=== PATIENT | male | born 1950 | race Asian ===

== ENCOUNTER 2016-07-30 08:27 | Emergency (ER) | payer MEDICAID ==
[2016-07-30] MEDS ORDERED: NORMAL SALINE 1000 ML 1,000 ML IV PRN (08:41)
--- NOTE | 2016-07-30 09:28 | ER Document Report ---
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 Patient has not been hydrating well. Admits to multiple similar episodes in the past TRAVEL OUTSIDE OF THE [place] IN LAST 30 DAYS: No - HPI Onset: Last week Onset/Duration: Persistent Quality of pain: Achy Severity: Mild Pain Level: 1 Associated symptoms: Nausea, Vomiting Exacerbated by: Denies Relieved by: Denies Similar symptoms previously: Yes Recently seen / treated by doctor: Yes - Related Data Allergies/Adverse Reactions: No Known Allergies Allergy (Verified 07/30/16 08:33) Past Medical History - Social History Smoking Status: Current Every Day Smoker Cigarette use (# per day): Yes Chew tobacco use (# tins/day): No Smoking Education Provided: No Frequency of alcohol use: Occasional Drug Abuse: None Family History: Reviewed & Not Pertinent Patient has suicidal ideation: No Patient has homicidal ideation: No - Past Medical History Cardiac Medical History: Denies: Hx Coronary Artery Disease, Hx Heart Attack, Hx Hypertension Pulmonary Medical History: Denies: Hx Asthma, Hx Bronchitis, Hx COPD, Hx Pneumonia Neurological Medical History: Denies: Hx Cerebrovascular Accident, Hx Seizures Endocrine Medical History: Reports: Hx Diabetes Mellitus Type 2 Renal/ Medical History: Denies: Hx Peritoneal Dialysis Musculoskeltal Medical History: Reports Hx Arthritis Psychiatric Medical History: Reports: Hx Dementia Past Surgical History: Reports: Hx Cholecystectomy, Hx Coronary Stent - Immunizations Hx Diphtheria, Pertussis, Tetanus Vaccination: No - UNSURE Review of Systems - Review of Systems Notes: REVIEW OF SYSTEMS: CONSTITUTIONAL : Denies fever, chills, or sweats. Denies recent illness. EENT: Denies eye, ear, throat, or mouth pain or symptoms. Denies nasal or sinus congestion or discharge. Denies throat, tongue, or mouth swelling or difficulty swallowing. CARDIOVASCULAR: Denies chest pain. Denies palpitations or racing or irregular heart beat. Denies ankle edema. RESPIRATORY: Denies cough, cold, or chest congestion. Denies shortness of breath, difficulty breathing, or wheezing. GASTROINTESTINAL: Denies abdominal pain or distention. Denies nausea, vomiting , or diarrhea. Denies blood in vomitus, stools, or per rectum. Denies black, tarry stools. Denies constipation. but had abd pain prior to arrival GENITOURINARY: Denies difficulty urinating, painful urination, burning, frequency, blood in urine, or discharge. MUSCULOSKELETAL: Denies back or neck pain or stiffness. Denies joint pain or swelling. SKIN: Denies rash, lesions or sores. HEMATOLOGIC : Denies easy bruising or bleeding. LYMPHATIC: Denies swollen, enlarged glands. NEUROLOGICAL: Denies confusion or altered mental status. Denies passing out or loss of consciousness. Denies dizziness or lightheadedness. Denies headache. Denies weakness or paralysis or loss of use of either side. Denies problems with gait or speech. Denies sensory loss, numbness, or tingling. Denies seizures. PSYCHIATRIC: Denies anxiety or stress. Denies depression, suicidal ideation, or homicidal ideation. ALL OTHER SYSTEMS REVIEWED AND NEGATIVE. Dictation was performed using [employer] voice recognition software PHYSICAL EXAMINATION: GENERAL: Well-appearing, well-nourished and in no acute distress. HEAD: Atraumatic, normocephalic. EYES: Pupils equal round and reactive to light, extraocular movements intact, sclera anicteric, conjunctiva are normal. ENT: Nares patent, oropharynx clear without exudates. Moist mucous membranes. NECK: Normal range of motion, supple without lymphadenopathy LUNGS: Breath sounds clear to auscultation bilaterally and equal. No wheezes rales or rhonchi. HEART: Regular rate and rhythm without murmurs ABDOMEN: Soft, nontender, nondistended abdomen. No guarding, no rebound. No masses appreciated. Musculoskeletal: Normal range of motion, no pitting or edema. No cyanosis. NEUROLOGICAL: Cranial nerves grossly intact. Normal speech, normal gait. Normal sensory, motor exams PSYCH: Normal mood, normal affect. SKIN: Warm, Dry, normal turgor, no rashes or lesions noted. Physical Exam - Vital signs Vitals: Temp Pulse Resp BP Pulse Ox 97.3 F 82 18 132/88 H 100 07/30/16 08:35 07/30/16 08:35 07/30/16 08:35 07/30/16 08:35 07/30/16 08:35 Course - Re-evaluation Re-evalutation: 07/30/16 09:28 Patient refuses an prop and scenery maker and wishes for family member to interpret for him labs pending 07/30/16 10:[address] Boyer regarding patient he has no concerns regarding imaging, labs or further workup. he bleeives pain control and patient is stable for discharge 07/30/16 10:20 After performing a Medical Screening Examination, I estimate there is LOW risk for ACUTE APPENDICITIS, BOWEL OBSTRUCTION, ACUTE CHOLECYSTITIS, PERFORATED DIVERTICULITIS, INCARCERATED HERNIA, PANCREATITIS, or PERFORATED ULCER, thus I consider the discharge disposition reasonable. Also, there is no evidence or peritonitis, sepsis, or toxicity. The patient and I have discussed the diagnosis and risks, and we agree with discharging home with close follow-up with the understanding that symptoms and presentations can change. We also discussed returning to the Emergency Department immediately if new or worsening symptoms occur. We have discussed the symptoms which are most concerning (e.g., bloody stool, fever, changing or worsening pain, intractable vomiting - standard verbal up date) that necessitate immediate return. - Vital Signs Vital signs: Temp Pulse Resp BP Pulse Ox 97.3 F 82 18 132/88 H 100 07/30/16 08:35 07/30/16 08:35 07/30/16 08:35 07/30/16 08:35 07/30/16 08:35 - Laboratory Result Diagrams: 07/30/16 09:39 07/30/16 09:39 Laboratory results interpreted by me: 07/30/16 07/30/16 09:39 09:39 RDW 14.1 H Plt Count 117 L Seg Neutrophils % 80.9 H Lymphocytes % 7.1 L Total Bilirubin 2.1 H AST 74 H Alkaline Phosphatase 165 H Lipase 10.6 L - Consults Dr boyer Time consulted: 10:17 Reason for consultation: 07/30/16 10:17 consult Discharge - Discharge Clinical Impression: History of ERCP, Decreased appetite Condition: Stable Disposition: HOME, SELF-CARE Additional Instructions: Please follow-up with your surgeon in 1-2 days for reevaluation or return immediately if there are any other concerns
[2016-07-30 09:53] LABS: ABSOLUTE EOSINOPHILS # (AUTO) 0.1 10^3/uL (0.0-0.6); ABSOLUTE LYMPHOCYTES (AUTO) 0.7 10^3/uL (0.5-4.7); ABSOLUTE MONOCYTES (AUTO) 1.1 10^3/uL (0.1-1.4); ABSOLUTE NEUT (AUTO) 7.6 10^3/uL (1.7-8.2); BASOPHILS % (AUTO) 0.1 % (0-2); EOSINOPHILS % (AUTO) 0.6 % (0-6); HEMATOCRIT 47.1 % (37.9-51.0); HGB HCT DIFFERENCE 0.9; LYMPHOCYTES % (AUTO) 7.1 % (13-45); MEAN CORPUSCULAR HEMOGLOBIN 31.4 pg (27.0-33.4); MEAN CORPUSCULAR HGB CONC 33.9 g/dL (32.0-36.0); MEAN CORPUSCULAR VOLUME 93 fl (80-97); MONOCYTES % (AUTO) 11.3 % (3-13); RED BLOOD COUNT 5.08 10^6/uL (4.35-5.55); RED CELL DISTRIBUTION WIDTH 14.1 % (11.5-14.0); SEGMENTED NEUTROPHILS % (AUTO) 80.9 % (42-78); WHITE BLOOD COUNT 9.3 10^3/uL (4.0-10.5)
[2016-07-30 10:10] LABS: ALANINE AMINOTRANSFERASE 61 U/L (21-72); ALBUMIN 4.1 g/dL (3.5-5.0); ALKALINE PHOSPHATASE 165 U/L (38-126); ANION GAP 17 (5-19); ASPARTATE AMINO TRANSFERASE 74 U/L (17-59); BILIRUBIN,TOTAL 2.1 mg/dL (0.2-1.3); BLOOD UREA NITROGEN 16 mg/dL (7-20); CALCIUM 9.1 mg/dL (8.4-10.2); CARBON DIOXIDE 22 mmol/L (22-30); CHLORIDE 100 mmol/L (98-107); CREATININE RESULT 0.87 mg/dL (0.52-1.25); GLUCOSE 109 mg/dL (75-110); LIPASE 10.6 U/L (23-300); POTASSIUM 3.9 mmol/L (3.6-5.0); SODIUM 138.8 mmol/L (137-145); TOTAL PROTEIN 7.7 g/dL (6.3-8.2)
[2016-07-30 11:59] VITALS: BP 156/84
== END 2016-07-30 11:26 | disposition home or self-care (01) ==
LOC: ER 08:27
DX: R63.0 Anorexia (principal); Z98.890 Other specified postprocedural states; E11.9 Type 2 diabetes mellitus without complications; F17.210 Nicotine dependence, cigarettes, uncomplicated; Z87.19 Personal history of other diseases of the digestive system; Z90.49 Acquired absence of other specified parts of digestive tract; Z98.61 Coronary angioplasty status
CPT/HCPCS: 99284; 96360; 96361; 36415; 83690; 85025; 80053; J7030

== ENCOUNTER 2018-03-14 19:30 | Inpatient (IN) | payer MEDICARE, MEDICAID ==
--- NOTE | 2018-03-14 20:41 | ER Document Report ---
ED GI/ - General Chief Complaint: Abdominal Pain Stated Complaint: ABDOMINAL PAIN Time Seen by Provider: 03/14/18 20:41 Mode of Arrival: Ambulatory Information source: Patient, Relative Notes: Patient presented to the ED with epigastric abdominal pain which started a few days ago. Patient also have unexplained weight loss and anorexia. TRAVEL OUTSIDE OF THE [place] IN LAST 30 DAYS: No - HPI Patient complains to provider of: Abdominal pain Onset: This morning Timing/Duration: Sudden Quality of pain: Sharp Severity at maximum: Severe Severity in ED: Severe Pain Level: 4 Location: Epigastric Associated symptoms: Nausea, Vomiting Exacerbated by: Denies Relieved by: Denies Similar symptoms previously: No Recently seen / treated by doctor: No - Related Data Allergies/Adverse Reactions: No Known Allergies Allergy (Verified 07/30/16 08:33) Past Medical History - Social History Smoking Status: Unknown if Ever Smoked Family History: Reviewed & Not Pertinent - Past Medical History Cardiac Medical History: Denies: Hx Coronary Artery Disease, Hx Heart Attack, Hx Hypertension Pulmonary Medical History: Denies: Hx Asthma, Hx Bronchitis, Hx COPD, Hx Pneumonia Neurological Medical History: Denies: Hx Cerebrovascular Accident, Hx Seizures Endocrine Medical History: Reports: Hx Diabetes Mellitus Type 2 Renal/ Medical History: Denies: Hx Peritoneal Dialysis Musculoskeletal Medical History: Reports Hx Arthritis Psychiatric Medical History: Reports: Hx Dementia Past Surgical History: Reports: Hx Abdominal Surgery, Hx Cholecystectomy, Hx Coronary Stent - Immunizations Hx Diphtheria, Pertussis, Tetanus Vaccination: No - UNSURE Review of Systems - Review of Systems Constitutional: No symptoms reported EENT: No symptoms reported Cardiovascular: No symptoms reported Respiratory: No symptoms reported Gastrointestinal: Abdominal pain, Nausea, Vomiting Genitourinary: No symptoms reported Male Genitourinary: No symptoms reported Musculoskeletal: No symptoms reported Skin: No symptoms reported Hematologic/Lymphatic: No symptoms reported Neurological/Psychological: No symptoms reported -: Yes All other systems reviewed and negative Physical Exam - Vital signs Vitals: Temp Pulse Resp BP Pulse Ox 98.0 F 86 20 140/82 H 99 03/14/18 19:40 03/14/18 19:40 03/14/18 19:40 03/14/18 19:40 03/14/18 19:40 Interpretation: Normal - General General appearance: Alert, Other - Cachectic In distress: Moderate - HEENT Head: Normocephalic, Atraumatic Eyes: Normal Pupils: PERRL - Respiratory Respiratory status: No respiratory distress Chest status: Nontender Breath sounds: Normal Chest palpation: Normal - Cardiovascular Rhythm: Regular Heart sounds: Normal auscultation Murmur: No - Abdominal Inspection: Normal Distension: No distension Bowel sounds: Normal Tenderness: Tender - Epigastric tenderness to palpation. Organomegaly: No organomegaly - Back Back: Normal, Nontender - Extremities General upper extremity: Normal inspection, Nontender, Normal color, Normal ROM , Normal temperature General lower extremity: Normal inspection, Nontender, Normal color, Normal ROM , Normal temperature, Normal weight bearing. No: Karmen's sign - Neurological Neuro grossly intact: Yes Cognition: Normal Orientation: AAOx4 Tawny Coma Scale Eye Opening: Spontaneous Tawny Coma Scale Verbal: Oriented Tawny Coma Scale Motor: Obeys Commands Tawny Coma Scale Total: 15 Speech: Normal Motor strength normal: LUE, RUE, LLE, RLE Sensory: Normal - Psychological Associated symptoms: Normal affect, Normal mood - Skin Skin Temperature: Warm Skin Moisture: Dry Skin Color: Normal Course - Vital Signs Vital signs: Temp Pulse Resp BP Pulse Ox 98.0 F 84 17 127/66 H 100 03/14/18 19:40 03/14/18 21:20 03/14/18 21:20 03/14/18 23:01 03/14/18 23:01 - Laboratory Result Diagrams: 03/14/18 20:40 03/14/18 20:40 Laboratory results interpreted by me: 03/14/18 03/14/18 03/14/18 20:40 20:40 21:33 WBC 11.5 H Plt Count 120 L Seg Neuts % (Manual) 81 H Lymphocytes % (Manual) 8 L Abs Neuts (Manual) 9.3 H Potassium 3.2 L Glucose 111 H Total Bilirubin 3.7 H Direct Bilirubin 0.9 H Lipase 338.4 H Urine Ketones 20 H Urine Blood MODERATE H Urine Urobilinogen 2.0 H - Diagnostic Test Radiology reviewed: Image reviewed, Reports reviewed - Transfer of Care Care transferred to following provider: Patient will be admitted by Dr. Mesha Cunningham for further management. Notes: 03/15/18 02:39 Acute pancreatitis. Epigastric abdominal pain.. Weight loss. Discharge - Discharge Clinical Impression: Weight loss, unintentional Acute pancreatitis Qualifiers: Pancreatitis type: unspecified pancreatitis type Acute pancreatitis complication: unspecified Qualified Code(s): K85.90 - Acute pancreatitis without necrosis or infection, unspecified Abdominal pain Qualifiers: Abdominal location: epigastric Qualified Code(s): R10.13 - Epigastric pain Condition: Stable Disposition: ADMITTED INPATIENT Admitting Provider: Hospitalist Unit Admitted: Medical Floor
[2018-03-14 21:03] LABS: HEMATOCRIT 41.3 % (37.9-51.0); HEMOGLOBIN 14.2 g/dL (13.5-17.0); MEAN CORPUSCULAR HGB CONC 34.3 g/dL (32.0-36.0); MEAN CORPUSCULAR VOLUME 93 fl (80-97); PLATELET COUNT 120 10^3/uL (150-450); RED BLOOD COUNT 4.42 10^6/uL (4.35-5.55); RED CELL DISTRIBUTION WIDTH 13.5 % (11.5-14.0); WHITE BLOOD COUNT 11.5 10^3/uL (4.0-10.5)
[2018-03-14 21:21] LABS: ABSOLUTE LYMPHOCYTES# (MANUAL) 0.9 10^3/uL (0.5-4.7); ABSOLUTE MONOCYTES # (MANUAL) 1.3 10^3/uL (0.1-1.4); ABSOLUTE NEUTROPHILS# (MANUAL) 9.3 10^3/uL (1.7-8.2); BASOPHILS % (MANUAL) 0 % (0-2); EOSINOPHILS % (MANUAL) 0 % (0-6); LYMPHOCYTES % (MANUAL) 8 % (13-45); MONOCYTES % (MANUAL) 11 % (3-13); NUCLEATED RED BLOOD CELLS 1 /100 WBC (0); SEGMENTED NEUTROPHILS % (MAN) 81 % (42-78); TOTAL CELLS COUNTED 100
[2018-03-14 21:22] LABS: PLATELET COMMENT DECREASED; TOXIC GRANULATION SLIGHT
[2018-03-14 21:25] LABS: ALANINE AMINOTRANSFERASE 38 U/L (21-72); ALBUMIN 3.9 g/dL (3.5-5.0); ALKALINE PHOSPHATASE 70 U/L (38-126); ANION GAP 15 (5-19); ASPARTATE AMINO TRANSFERASE 51 U/L (17-59); BILIRUBIN,DIRECT 0.9 mg/dL (0.0-0.4); BILIRUBIN,TOTAL 3.7 mg/dL (0.2-1.3); BLOOD UREA NITROGEN 12 mg/dL (7-20); CALCIUM 8.7 mg/dL (8.4-10.2); CARBON DIOXIDE 23 mmol/L (22-30); CHLORIDE 99 mmol/L (98-107); GLUCOSE 111 mg/dL (75-110); LIPASE 338.4 U/L (23-300); POTASSIUM 3.2 mmol/L (3.6-5.0); SODIUM 137.1 mmol/L (137-145); TOTAL PROTEIN 7.5 g/dL (6.3-8.2)
[2018-03-14 21:45] LABS: APPEARANCE,URINE SLIGHTLY-CLOUDY; BILIRUBIN,URINE NEGATIVE (NEGATIVE); COLOR,URINE YELLOW; GLUCOSE, URINE NEGATIVE (NEGATIVE); KETONES,URINE 20 mg/dL (NEGATIVE); LEUKOCYTE ESTERASE,URINE NEGATIVE (NEGATIVE); NITRITE,URINE NEGATIVE (NEGATIVE); PROTEIN,URINE NEGATIVE (NEGATIVE); URINE SPECIFIC GRAVITY 1.017
[2018-03-14] MEDS ORDERED: FENTANYL CITRATE INJ/PF 100 MCG/2 ML AMPUL IV ONE (22:34)
[2018-03-14] MEDS ORDERED: NORMAL SALINE 1000 ML 1,000 ML IV ONE (22:34)
[2018-03-14] MEDS ORDERED: PIPERACILLIN/TAZOBACTAM 3.375 GM VIAL IV ONE (22:35)
[2018-03-14] MEDS ORDERED: ONDANSETRON HCL INJ/PF 4 MG/2 ML SDV IV ONE (22:35)
[2018-03-14] MEDS ORDERED: POTASSIUM CHLORIDE 20 MEQ/15 ML UDCUP PO ONE (22:38)
--- NOTE | 2018-03-15 00:55 | RADIOLOGY REPORT (SQ) ---
EXAM DESCRIPTION: CT ABDOMEN PELVIS WITH IV CONTRAST COMPLETED DATE/TME: 03/14/2018 22:33 CLINICAL HISTORY: 67 years Male abdominal pain COMPARISON: 05/17/2016. TECHNIQUE: Contiguous axial images obtained through the abdomen and pelvis following IV contrast. Reformatted images obtained. This exam was performed according to our department optimization program which includes automated exposure control, adjustment of the mA and/or kv according to patient size and/or use of iterative reconstruction technique. FINDINGS: Fatty infiltration the liver. Pneumobilia is present. There is mild extrahepatic and intrahepatic ductal dilatation particular in the left lobe. There has been removal of the previously noted biliary stent. The spleen is unremarkable. As compared to the previous examination there is diffuse pancreatic enlargement and peripancreatic edema suggesting pancreatitis with dilatation of the pancreatic duct. There are calcific densities in the pancreatic tail which may reflect stones or chronic calcific pancreatitis. Calculi are also present in the region of the pancreatic head. There is been development of fluid collection in the pancreatic head likely a pseudocyst. Cystic neoplasm is thought less likely but not excluded. This measures 2.6 cm. No adrenal masses. The kidneys appear unremarkable. No hydronephrosis. The gallbladder is absent. No aneurysmal dilatation of the aorta. No bowel obstruction. The appendix is not clearly visualized. No significant fluid in the pelvis. IMPRESSION: Diffuse pancreatic edema and surrounding inflammatory changes suggesting acute pancreatitis with probable pseudocyst in the region of the pancreatic head. Cystic pancreatic neoplasm is not excluded but thought less likely Areas of calcification in the distal aspect of the pancreatic tail and pancreatic head which may be within the ducts or represent chronic calcific pancreatitis Mild extrahepatic ductal dilatation and pneumobilia
[2018-03-15] MEDS ORDERED: DEXTROSE 50%-WATER 25 GM/50 ML DISP.SYRIN IV PRN ×2 (02:03)
[2018-03-15] MEDS ORDERED: GLUCAGON,HUMAN RECOMB 1 MG INJ SUBCUT PRN (02:03)
[2018-03-15] MEDS ORDERED: DEXTROSE 40% GEL 15 GM TUBE PO PRN ×2 (02:03)
[2018-03-15] MEDS ORDERED: PROMETHAZINE HCL INJ 25 MG/1 ML VIAL IV PRN (02:03)
[2018-03-15] MEDS ORDERED: PANTOPRAZOLE SODIUM 40 MG VIAL IV ONE (02:30)
[2018-03-15] MEDS ORDERED: POTASSIUM CHLORIDE 20 MEQ/15 ML UDCUP PO ONE (02:45)
--- NOTE | 2018-03-15 02:45 | PDOC H&P ---
History of Present Illness Admission Date/PCP: 03/15/18 01:26 None Patient complains of: abdominal pain History of Present Illness: MINOR LARA is a 67 year old male with medical history of cholecystectomy complicated with gallbladder fossa abscess, biliary stricture status post ERCP and biliary stenting that has been removed., Dementia, malnutrition, diabetes mellitus not on medications. Patient is from [facility] and his speak Spanish, his son is a hourly sign language interpreter and tells me to do not call the language line as this is not going to work. Son is in active duty and he came back home around 5:30 PM and found his father laying on the floor complaining of abdominal pain in the upper area that was very severe up to 10/10 in intensity, some tells me that his father usually never complains of pain. Has lost 12 pounds in 1 year. Denies having any nausea, vomiting, chest pain, shortness of breath, diarrhea. In the emergency department laboratory was done and was found lipase 338 with prior on July [address] abdomen and pelvis suggesting acute pancreatitis with possible pseudocyst in the pancreatic head and dilatation of the pancreatic duct. Given 1 L of IV fluids and IV fentanyl. Patient does not have any primary care physician and does not follow with any GI doctor. Past Medical History Endocrine Medical History: Reports: Diabetes Mellitus Type 2 - Not on medications GI Medical History: Reports: Other - Biliary duct stricture status post stent placement removal Musculoskeltal Medical History: Reports: Arthritis Psychiatric Medical History: Reports: Dementia Past Surgical History Past Surgical History: Reports: Cholecystectomy - With gallbladder fossa abscess complication following cholecystectomy, Coronary Stent Social History Smoking Status: Former Smoker - Used to smoke 1 pack/day until 2 years ago, now vapes Frequency of Alcohol Use: Occasional - Drinks 1 beer here and there as per his son, used to be heavy drinker until 5 years ago Hx Recreational Drug Use: No Drugs: None Hx Prescription Drug Abuse: No Past Social History Note: Left with his son, is ambulatory, is able to recognize family members despite his dementia and independent with his ADLs. Family History Family History: Reviewed & Not Pertinent Parental Family History Reviewed: No Children Family History Reviewed: NA Sibling(s) Family History Reviewed.: NA Medication/Allergy Home Medications: Hydromorphone HCl [Dilaudid 2 mg Tablet] 2 mg PO Q4HP PRN #30 tablet 03/04/17 Promethazine HCl [Phenergan 25 mg Tablet] 1 - 2 tab PO Q6H PRN #15 tablet Allergies/Adverse Reactions: No Known Allergies Allergy (Verified 07/30/16 08:33) Review of Systems Review of Systems: As outlined in the HPI, all others negative as per his son Physical Exam Vital Signs: Temp Pulse Resp BP Pulse Ox 98.0 F 84 17 127/66 H 100 03/14/18 19:40 03/14/18 21:20 03/14/18 21:20 03/14/18 23:01 03/14/18 23:01 Intake & Output 03/13/18 03/14/18 03/15/18 06:59 06:59 06:59 Intake Total 1000 Balance 1000 Additional comments: General appearance: Cachectic, alert and cooperative, and appears to be in no acute distress Head: Normocephalic Eyes: Left eye with advanced cataract, EOMI, vision decreased. Ears: External auditory canal and tympanic membranes clear, hearing grossly intact. Nose: No nasal discharge. Throat: Oral cavity and pharynx normal. No inflammation, swelling, exudate or lesions. Neck: Neck supple, nontender without lymphadenopathy, masses or thyromegaly. Cardiac: Normal S1 and S2. No S3, S4 or murmurs. Rhythm is regular. There is no peripheral edema, cyanosis or pallor. Extremities are warm and well perfused. Capillary refill is less than 2 seconds. No carotid bruits. Lungs: Clear to auscultation and percussion without rales, rhonchi, wheezing or diminished breath sounds. Not using accessory muscles. Abdomen: Decreased bowel sounds. Soft. Severe tenderness in the epigastric and right upper quadrant area with mild guarding. Extremities: No significant deformity or joint abnormality. No edema. Peripheral pulses intact. Neurological: Cranial nerves II through XII grossly intact. Moves all 4 extremities. Skin: Skin normal color, texture and turgor with no lesions or eruptions, warm and dry. Psychiatric: Unable to evaluate Results Laboratory Results: 03/14/18 03/14/18 03/14/18 20:40 20:40 21:33 WBC 11.5 H RBC 4.42 Hgb 14.2 Hct 41.3 MCV 93 MCH 32.0 MCHC 34.3 RDW 13.5 Plt Count 120 L Total Counted 100 Seg Neuts % (Manual) 81 H Lymphocytes % (Manual) 8 L Monocytes % (Manual) 11 Eosinophils % (Manual) 0 Basophils % (Manual) 0 Abs Neuts (Manual) 9.3 H Abs Lymphs (Manual) 0.9 Abs Monocytes (Manual) 1.3 Absolute Eos (Manual) 0.0 Abs Basophils (Manual) 0.0 Nucleated RBCs 1 Toxic Granulation SLIGHT Platelet Comment DECREASED Sodium 137.1 Potassium 3.2 L Chloride 99 Carbon Dioxide 23 Anion Gap 15 BUN 12 Creatinine 0.89 Est GFR ( Amer) > 60 Est GFR (Non-Af Amer) > 60 Glucose 111 H Calcium 8.7 Total Bilirubin 3.7 H Direct Bilirubin 0.9 H AST 51 ALT 38 Alkaline Phosphatase 70 Total Protein 7.5 Albumin 3.9 Lipase 338.4 H Urine Color YELLOW Urine Appearance SLIGHTLY-CLOUDY Urine pH 5.0 Ur Specific [place] 1.017 Urine Protein NEGATIVE Urine Glucose (UA) NEGATIVE Urine Ketones 20 H Urine Blood MODERATE H Urine Nitrite NEGATIVE Urine Bilirubin NEGATIVE Urine Urobilinogen 2.0 H Ur Leukocyte Esterase NEGATIVE Urine WBC (Auto) 0 Urine RBC (Auto) 4 Urine Bacteria (Auto) TRACE Squamous Epi Cells Auto <1 Urine Mucus (Auto) OCC Urine Ascorbic Acid NEGATIVE Impressions: Abdomen/Pelvis CT 03/14/18 22:33 IMPRESSION: Diffuse pancreatic edema and surrounding inflammatory changes suggesting acute pancreatitis with probable pseudocyst in the region of the pancreatic head. Cystic pancreatic neoplasm is not excluded but thought less likely Areas of calcification in the distal aspect of the pancreatic tail and pancreatic head which may be within the ducts or represent chronic calcific pancreatitis Mild extrahepatic ductal dilatation and pneumobilia Assessment & Plan - Diagnosis (1) Acute pancreatitis Qualifiers: Pancreatitis type: unspecified pancreatitis type Acute pancreatitis complication: unspecified Qualified Code(s): K85.90 - Acute pancreatitis without necrosis or infection, unspecified Is this a current diagnosis for this admission?: Yes Plan: Patient comes to the emergency department with severe abdominal pain, lipase found 338 with normal baseline. Never had pancreatitis in the past. Patient has history of cholecystectomy with Colelithiasis. I will go ahead and place an order for MRCP as he also has history of biliary stricture with stent placed in the past which has been removed. Added serum alcohol levels to previous labs. Lipase to be repeated in the morning. IV fluids hydration with normal saline running at 150 cc/h as the patient is small and cachectic. IV pain medication, antiemetics and Protonix. We will keep the patient n.p.o. for now. Place consultation for Dr. Maier from the GI department, appreciate his input. Do not feel the patient needs to be on IV antibiotics now, 1 dose of IV Zosyn given in the ED. CT abdomen and pelvis consistent with acute pancreatitis but also has a pseudocyst in the pancreatic head with dilatation of pancreatic duct. (2) Weight loss, unintentional Is this a current diagnosis for this admission?: Yes Plan: Patient has been losing weight for the last couple of years, 12 pounds in the last year, he is cachectic despite sons telling me that he has good appetite at home (3) Diabetes mellitus type 2 in nonobese Is this a current diagnosis for this admission?: Yes Plan: Patient used to be on anti-diabetic medication at home but probably due to his severe weight loss it has been discontinued (4) Dementia Qualifiers: Dementia behavioral disturbance: without behavioral disturbance Is this a current diagnosis for this admission?: Yes Plan: His son tells me that he has dementia but this is not too bad probably small to moderate, patient is independent with his L ADLs, ambulatory, able to recognize family members. Not on medications. (5) Hematuria Is this a current diagnosis for this admission?: Yes Plan: Moderate hematuria in the urinalysis, unclear etiology. (6) Hypokalemia Is this a current diagnosis for this admission?: Yes Plan: Potassium 3.2 in the ED, will give 40 mEq p.o. - Time Time Spent: 30 to 50 Minutes - Inpatient Certification Based on my medical assessment, after consideration of the patient's comorbidities, presenting symptoms, or acuity I expect that the services needed warrant INPATIENT care.: Yes I certify that my determination is in accordance with my understanding of Medicare's requirements for reasonable and necessary INPATIENT services [42 CFR 412.3e].: Yes Medical Necessity: Risk of Complication if Not Cared For in Hospital
[2018-03-15] MEDS: HYDROMORPHONE HCL INJ/PF 2 MG/ML AMPULE IV PRN ×4 (02:49→23:10)
[2018-03-15 05:19] LABS: ABSOLUTE LYMPHOCYTES (AUTO) 0.9 10^3/uL (0.5-4.7); BASOPHILS % (AUTO) 0.1 % (0-2); EOSINOPHILS % (AUTO) 0.1 % (0-6); HEMATOCRIT 35.6 % (37.9-51.0); HEMOGLOBIN 12.2 g/dL (13.5-17.0); LYMPHOCYTES % (AUTO) 7.6 % (13-45); MEAN CORPUSCULAR HEMOGLOBIN 32.3 pg (27.0-33.4); MEAN CORPUSCULAR HGB CONC 34.2 g/dL (32.0-36.0); MEAN CORPUSCULAR VOLUME 94 fl (80-97); PLATELET COUNT 108 10^3/uL (150-450); RED BLOOD COUNT 3.78 10^6/uL (4.35-5.55); RED CELL DISTRIBUTION WIDTH 13.6 % (11.5-14.0); SEGMENTED NEUTROPHILS % (AUTO) 84.2 % (42-78); TOTAL CELLS COUNTED % (AUTO) 100 %; WHITE BLOOD COUNT 11.9 10^3/uL (4.0-10.5)
[2018-03-15 05:21] LABS: INTERNATIONAL RATION (INR) 1.25; PROTHROMBIN TIME 16.3 SEC (11.4-15.4)
[2018-03-15 05:22] LABS: PARTIAL THROMBOPLASTIN TIME 37.6 SEC (23.5-35.8)
[2018-03-15 05:38] LABS: ALANINE AMINOTRANSFERASE 33 U/L (21-72); ALBUMIN 2.9 g/dL (3.5-5.0); ALKALINE PHOSPHATASE 55 U/L (38-126); ANION GAP 9 (5-19); ASPARTATE AMINO TRANSFERASE 38 U/L (17-59); BILIRUBIN,DIRECT 0.7 mg/dL (0.0-0.4); BILIRUBIN,TOTAL 2.6 mg/dL (0.2-1.3); BLOOD UREA NITROGEN 11 mg/dL (7-20); CALCIUM 7.7 mg/dL (8.4-10.2); CARBON DIOXIDE 24 mmol/L (22-30); CHLORIDE 107 mmol/L (98-107); GLUCOSE 85 mg/dL (75-110); LIPASE 157.2 U/L (23-300); POTASSIUM 3.2 mmol/L (3.6-5.0); SODIUM 140.2 mmol/L (137-145); TOTAL PROTEIN 5.9 g/dL (6.3-8.2)
[2018-03-15] MEDS: NORMAL SALINE 1000 ML 1,000 ML IV PRN ×2 (06:21→20:25)
--- NOTE | 2018-03-15 08:05 | Progress Note ---
Provider Note Provider Note: patient is an established patient of Dr Goldman. please contact him if needed
[2018-03-15] MEDS: ACETAMINOPHEN 325 MG TABLET PO PRN (09:39)
[2018-03-15] MEDS: ENOXAPARIN SODIUM INJ 40 MG/0.4 ML DISP.SYRIN SUBCUT SCH (09:41)
[2018-03-15] MEDS: PANTOPRAZOLE SODIUM 40 MG VIAL IV SCH (09:43)
--- NOTE | 2018-03-15 12:45 | RADIOLOGY REPORT (SQ) ---
EXAM DESCRIPTION: MRI ABDOMEN WITHOUT COMPLETED DATE/TIME: 03/15/2018 11:31 am REASON FOR STUDY: Acute pancreatitis/h/o of CBD stricture and choled COMPARISON: Prior CT exam 03/15/2018 was reviewed Multiple ERCP and CT exams from 2016 TECHNIQUE: Noncontrast MRCP. Source and MIP images reviewed. LIMITATIONS: None. FINDINGS: The gallbladder is surgically absent. On both CT exam 03/15/2018 and MRCP exam, there are air bubbles in the left-sided intrahepatic bile d ucts indicating common duct patency likely from old sphincterotomy. The liver is unremarkable. Common bile duct at the melvin hepatis measures 13 to 14 mm in diameter, at the pancreatic head measur es about 3 mm in diameter. On today's MRCP exam, no common bile duct filling defects are present wor risome for common bile duct stones. On both today's CT exam and MRCP, there is a fluid-filled cystic structure at the pancreatic head abo ut 3.5 cm in diameter. This likely represents a small pancreatic cyst or pseudocyst at the head. Th is finding is new compared to the studies from 2016. Extensive retroperitoneal interstitial tissue fluid is present from acute pancreatitis. There is a s mall amount of fluid in the lesser sac on axial image 16. Mild stable prominence of the pancreatic d uct best shown on axial series 11, image 13. Review of prior CT 03/25/2016 with the current exam demonstrates that calcifications at the pancreati c head neck and body are unchanged between 03/25/2016 and 03/15/2018 CT exam. No pleural effusions. Spleen, adrenal glands, kidneys unremarkable. IMPRESSION: No filling defects in the common bile or common hepatic duct worrisome for retained ston es. Since 2016, patient has developed a 3.5 cm cystic structure uncinate process of the pancreas, either pancreatic cyst or pseudocyst Diffuse retroperitoneal interstitial tissue fluid from pancreatitis. Post cholecystectomy TECHNICAL DOCUMENTATION: JOB ID: [id number] [employer]- All Rights Reserved Reading location - IP/workstation name: [email or web address]
--- NOTE | 2018-03-15 14:56 | Progress Note ---
Provider Note Provider Note: MINOR LARA is a 67 year old male with medical history of cholecystectomy complicated with gallbladder fossa abscess, biliary stricture status post ERCP and biliary stenting that has been removed, dementia, malnutrition, diabetes mellitus not on medications. The patient was seen this afternoon following his MRCP, he is resting comfortably in bed on room air. Upon assessment, the patient's abdomen is non- distended but (+)TTP in the RUQ. No N/V/D today. The patient states he feels hungry. 1. ABDOMINAL PAIN: likely secondary to acute on chronic pancreatitis. Initial lipase 338, improved today to 157. CT Abd suggestive of pancreatitis. MRCP completed, reveals 3.5cm cystic structure uncinate process of the pancreas - representing either a pancreatic cyst or pseudocyst. Diffuse retroperitoneal interstitial tissue fluid from pancreatitis. Results of MRCP discussed with director hris, Dr. Andino, who states there are no further procedures indicated for this patient. Once patient can tolerate p.o. diet without postprandial N/V/abdominal pain, he may be discharged home with close follow-up. 2. ETOH USE: Patient has a history of chronic alcohol use, resulting in chronic pancreatitis. The patient's son reports that the patient only consumes 1 beer every other day. Unfortunately, blood alcohol level was not checked upon arrival to the ED. Patient does not appear to exhibit S/S alcohol withdrawal. LFTs are within normal limits. Discussed with son the importance of abstinence from EtOH in order to avoid acute flareup of pancreatitis. 3. DIABETES: PMH of DM 2, currently diet controlled. Plan to advance diet today. If patient can tolerate regular diet, may discharge home with close follow-up to director hris.
[2018-03-16] MEDS: NORMAL SALINE 1000 ML 1,000 ML IV PRN ×4 (02:52→23:58)
[2018-03-16] MEDS: HYDROMORPHONE HCL INJ/PF 2 MG/ML AMPULE IV PRN ×4 (05:20→21:10)
[2018-03-16] MEDS: ENOXAPARIN SODIUM INJ 40 MG/0.4 ML DISP.SYRIN SUBCUT SCH (10:13)
[2018-03-16] MEDS: PANTOPRAZOLE SODIUM 40 MG VIAL IV SCH (10:17)
[2018-03-16] MEDS: ACETAMINOPHEN 325 MG TABLET PO PRN (15:34)
--- NOTE | 2018-03-16 17:13 | PDOC PROGRESS REPORT ---
Subjective Progress Note for:: 03/16/18 Subjective:: MINOR LARA is a 67 year old male with medical history of cholecystectomy complicated with gallbladder fossa abscess, biliary stricture status post ERCP and biliary stenting that has been removed, dementia, malnutrition, diabetes mellitus not on medications. The patient was seen this morning on rounds, he is resting comfortably in bed on room air. Upon assessment, the patient's abdomen is non-distended but (+)TTP in the epigastric region and RUQ. The patient was started on a regular diet yesterday since his Lipase had returned to normal. Unfortunately, the patient complains of postprandial abdominal pain. Additionally, he's had a low grade fever 99-100.0 for the last 12 hours. Given the nature of his MRCP (pancreatic pseudocyst and surrounding interstitial edema), the patient is not well enough for discharge home at this time. Plan to change diet to clear liquids. Continue to monitor VS, possible discharge home tomorrow. Updated son, Jose Alejandro, via telephone. Reason For Visit: ACUTE PANCREATITIS Physical Exam Vital Signs: Temp Pulse Resp BP Pulse Ox 99.9 F 96 15 102/60 97 03/16/18 11:39 03/16/18 14:00 03/16/18 11:39 03/16/18 11:39 03/16/18 11:39 Intake & Output 03/15/18 03/16/18 03/17/18 06:59 06:59 06:59 Intake Total 1000 2580 1337 Output Total 1325 225 Balance 1000 1255 1112 Weight 38.6 kg 38 kg General appearance: PRESENT: no acute distress, well-developed, well-nourished Head exam: PRESENT: atraumatic, normocephalic Eye exam: PRESENT: conjunctiva pink, PERRLA. ABSENT: scleral icterus Mouth exam: PRESENT: moist, tongue midline Respiratory exam: PRESENT: clear to auscultation doc, symmetrical, unlabored. ABSENT: rales, rhonchi, wheezes Cardiovascular exam: PRESENT: RRR, +S1, +S2. ABSENT: diastolic murmur, rubs, systolic murmur Pulses: PRESENT: normal radial pulses, normal dorsalis pedis pul Vascular exam: PRESENT: normal capillary refill GI/Abdominal exam: PRESENT: normal bowel sounds, soft, tenderness - EPIGASTRIC TENDERNESS. ABSENT: distended, guarding, mass, organolmegaly, rebound, rigid Rectal exam: PRESENT: deferred Extremities exam: PRESENT: full ROM. ABSENT: calf tenderness, clubbing, pedal edema Musculoskeletal exam: PRESENT: ambulatory, full ROM, normal inspection Neurological exam: PRESENT: alert, awake, oriented to person, oriented to place , oriented to time, oriented to situation Psychiatric exam: PRESENT: appropriate affect, normal mood Skin exam: PRESENT: dry, intact, warm. ABSENT: cyanosis, rash Results Laboratory Results: 03/15/18 04:37 03/15/18 04:37 Impressions: Abdomen/Pelvis CT 03/14/18 22:33 IMPRESSION: Diffuse pancreatic edema and surrounding inflammatory changes suggesting acute pancreatitis with probable pseudocyst in the region of the pancreatic head. Cystic pancreatic neoplasm is not excluded but thought less likely Areas of calcification in the distal aspect of the pancreatic tail and pancreatic head which may be within the ducts or represent chronic calcific pancreatitis Mild extrahepatic ductal dilatation and pneumobilia Abdomen MRI 03/15/18 00:00 IMPRESSION: No filling defects in the common bile or common hepatic duct worrisome for retained stones. Since 2016, patient has developed a 3.5 cm cystic structure uncinate process of the pancreas, either pancreatic cyst or pseudocyst Diffuse retroperitoneal interstitial tissue fluid from pancreatitis. Post cholecystectomy Status: Imported from PACS Assessment & Plan - Diagnosis (1) Acute pancreatitis Qualifiers: Pancreatitis type: unspecified pancreatitis type Acute pancreatitis complication: unspecified Qualified Code(s): K85.90 - Acute pancreatitis without necrosis or infection, unspecified Is this a current diagnosis for this admission?: Yes Plan: Likely secondary to acute on chronic pancreatitis. Initial lipase 338, improved today to 157. CT Abd suggestive of pancreatitis. MRCP completed, reveals 3.5cm cystic structure uncinate process of the pancreas -representing either a pancreatic cyst or pseudocyst. Diffuse retroperitoneal interstitial tissue fluid from pancreatitis. Results of MRCP discussed with nursing program manager, Dr. Andino, who states there are no further procedures indicated for this patient. Once patient can tolerate p.o. diet without postprandial N/V/abdominal pain, he may be discharged home with close follow-up. PRN tylenol and dilaudid for pain control (2) History of ETOH abuse Is this a current diagnosis for this admission?: Yes Plan: Patient has a history of chronic alcohol use, resulting in chronic pancreatitis. The patient's son reports that the patient only consumes 1 beer every other day. Unfortunately, blood alcohol level was not checked upon arrival to the ED. Patient does not appear to exhibit S/S alcohol withdrawal. LFTs are within normal limits. Discussed with son the importance of abstinence from EtOH in order to avoid acute flareup of pancreatitis. (3) Diabetes mellitus type 2 in nonobese Is this a current diagnosis for this admission?: Yes Plan: PMH of DM 2, currently diet controlled. - Time Time Spent with patient: 15-24 minutes Medications reviewed and adjusted accordingly: Yes Anticipated discharge: Home Within: within 24 hours - Inpatient Certification Based on my medical assessment, after consideration of the patient's comorbidities, presenting symptoms, or acuity I expect that the services needed warrant INPATIENT care.: Yes I certify that my determination is in accordance with my understanding of Medicare's requirements for reasonable and necessary INPATIENT services [42 CFR 412.3e].: Yes Medical Necessity: Risk of Complication if Not Cared For in Hospital - Plan Summary Plan Summary: CLEAR LIQUID DIET. MONITOR VITAL SIGNS, SPECIFICALLY TEMP, AND POSTPRANDIAL ABDOMINAL PAIN/NAUSEA/VOMITING.
[2018-03-17] MEDS ORDERED: IPRATROPIUM/ALBUTEROL 0.5-2.5 MG/3 ML AMPUL NEB ONE (00:35)
[2018-03-17] MEDS ORDERED: IPRATROPIUM/ALBUTEROL 0.5-2.5 MG/3 ML AMPUL NEB PRN (01:19)
[2018-03-17] MEDS: HYDROMORPHONE HCL INJ/PF 2 MG/ML AMPULE IV PRN ×3 (03:02→20:19)
[2018-03-17] MEDS: NORMAL SALINE 1000 ML 1,000 ML IV PRN ×3 (08:52→22:55)
[2018-03-17] MEDS: PANTOPRAZOLE SODIUM 40 MG VIAL IV SCH ×2 (09:28→10:44)
[2018-03-17] MEDS: ENOXAPARIN SODIUM INJ 40 MG/0.4 ML DISP.SYRIN SUBCUT SCH (09:28)
[2018-03-17 13:39] LABS: HEMATOCRIT 32.4 % (37.9-51.0); MEAN CORPUSCULAR HEMOGLOBIN 31.9 pg (27.0-33.4); MEAN CORPUSCULAR VOLUME 94 fl (80-97); PLATELET COUNT 170 10^3/uL (150-450); RED BLOOD COUNT 3.45 10^6/uL (4.35-5.55); RED CELL DISTRIBUTION WIDTH 14.1 % (11.5-14.0); WHITE BLOOD COUNT 13.6 10^3/uL (4.0-10.5)
[2018-03-17 14:44] LABS: ALANINE AMINOTRANSFERASE 24 U/L (21-72); ALBUMIN 2.4 g/dL (3.5-5.0); ALKALINE PHOSPHATASE 49 U/L (38-126); ANION GAP 9 (5-19); ASPARTATE AMINO TRANSFERASE 37 U/L (17-59); BILIRUBIN,DIRECT 0.3 mg/dL (0.0-0.4); BILIRUBIN,TOTAL 1.1 mg/dL (0.2-1.3); BLOOD UREA NITROGEN 4 mg/dL (7-20); CALCIUM 7.5 mg/dL (8.4-10.2); CARBON DIOXIDE 21 mmol/L (22-30); CHLORIDE 116 mmol/L (98-107); GLUCOSE 110 mg/dL (75-110); SODIUM 146.2 mmol/L (137-145); TOTAL PROTEIN 5.4 g/dL (6.3-8.2)
[2018-03-17] MEDS ORDERED: POTASSIUM CHLORIDE 10 MEQ CAPSULE.ER PO ONE (15:04)
--- NOTE | 2018-03-17 15:58 | RADIOLOGY REPORT (SQ) ---
EXAM DESCRIPTION: CHEST SINGLE VIEW COMPLETED DATE/TIME: 03/17/2018 2:57 pm REASON FOR STUDY: unexplained hypoxia COMPARISON: AP chest 01/01/2016 EXAM PARAMETERS: NUMBER OF VIEWS: One view. TECHNIQUE: Single frontal radiographic view of the chest acquired. RADIATION DOSE: NA LIMITATIONS: None. FINDINGS: LUNGS AND PLEURA: Increased interstitial markings around the periphery of both lung bases likely interstitial edema with Kandis lines. No pleural effusion. No perihilar pulmonary edema. No pneumothorax. MEDIASTINUM AND HILAR STRUCTURES: No masses. Contour normal. HEART AND VASCULAR STRUCTURES: Heart normal in size. Normal vasculature. BONES: No acute findings. HARDWARE: Clips right upper quadrant post cholecystectomy. OTHER: No other significant finding. IMPRESSION: Kandis lines at both lung bases, question mild fluid overload with interstitial edema TECHNICAL DOCUMENTATION: JOB ID: [id number] [employer]- All Rights Reserved Reading location - IP/workstation name: [email or web address]
[2018-03-17] MEDS ORDERED: POTASSI CL 20 MEQ/50 ML RIDER 20 MEQ/50 ML RTUPB IV ONE (16:30)
[2018-03-17] MEDS ORDERED: NICOTINE 21 MG/24 HR PATCH.TD24 TD ONE (16:43)
[2018-03-17] MEDS ORDERED: LORAZEPAM INJ 2 MG/1 ML VIAL IV ONE (16:43)
--- NOTE | 2018-03-17 18:03 | PDOC PROGRESS REPORT ---
Subjective Progress Note for:: 03/17/18 Subjective:: MINOR LARA is a 67 year old male with medical history of cholecystectomy complicated with gallbladder fossa abscess, biliary stricture status post ERCP and biliary stenting that has been removed, dementia, malnutrition, diabetes mellitus not on medications. The patient was seen this morning on rounds, he is resting comfortably in bed on room air. Upon assessment, the patient's abdomen is non-distended but (+)TTP in the epigastric region and RUQ. The patient has been able to tolerate his clear liquid diet, without postprandial nausea/vomiting. Laboratory studies reveal that lipase has returned to normal range but worsening leukocytosis. Given the nature of his MRCP (pancreatic pseudocyst and surrounding interstitial edema), the patient is not well enough for discharge home at this time. Continue clear liquids. Continue to monitor VS, possible discharge home tomorrow. Reason For Visit: ACUTE PANCREATITIS Physical Exam Vital Signs: Temp Pulse Resp BP Pulse Ox 100.4 F 91 16 102/57 L 91 L 03/17/18 11:19 03/17/18 11:19 03/17/18 11:19 03/17/18 11:19 03/17/18 11:19 Intake & Output 03/16/18 03/17/18 03/18/18 06:59 06:59 06:59 Intake Total 2580 4641 1200 Output Total 1325 225 200 Balance 1255 4416 1000 Weight 38 kg 37.4 kg General appearance: PRESENT: no acute distress, thin, well-developed, well- nourished Head exam: PRESENT: atraumatic, normocephalic Eye exam: PRESENT: conjunctiva pink, EOMI, PERRLA. ABSENT: scleral icterus Ear exam: PRESENT: normal external ear exam Mouth exam: PRESENT: moist, tongue midline Teeth exam: PRESENT: poor dentation Neck exam: ABSENT: carotid bruit, JVD, lymphadenopathy, thyromegaly Respiratory exam: PRESENT: clear to auscultation doc, symmetrical, unlabored. ABSENT: rales, rhonchi, wheezes Cardiovascular exam: PRESENT: RRR, +S1, +S2. ABSENT: diastolic murmur, rubs, systolic murmur Pulses: PRESENT: normal radial pulses, normal dorsalis pedis pul Vascular exam: PRESENT: normal capillary refill GI/Abdominal exam: PRESENT: normal bowel sounds, soft, tenderness - Epigastric region and bilateral upper quadrants. ABSENT: distended, guarding, mass, organolmegaly, rebound Rectal exam: PRESENT: deferred Extremities exam: PRESENT: full ROM. ABSENT: calf tenderness, clubbing, pedal edema Musculoskeletal exam: PRESENT: ambulatory, full ROM, normal inspection Neurological exam: PRESENT: alert, awake, other - Difficulty to assess orientation as patient only speaks [place] and is [place]. Previous attempts using [employer] have been unsuccessful. Son, Jose Alejandro, has been acting as warp knitting machine operator Psychiatric exam: PRESENT: agitated - Patient has been asking to go outside and smoke, appropriate affect, normal mood Skin exam: PRESENT: dry, intact, warm. ABSENT: cyanosis, rash Results Laboratory Results: 03/17/18 12:00 03/17/18 14:18 03/17/18 03/17/18 03/17/18 12:00 12:00 14:18 WBC 13.6 H RBC 3.45 L Hgb 11.0 L Hct 32.4 L MCV 94 MCH 31.9 MCHC 34.0 RDW 14.1 H Plt Count 170 Sodium Cancelled 146.2 H Potassium Cancelled 3.0 L* Chloride Cancelled 116 H Carbon Dioxide Cancelled 21 L Anion Gap Cancelled 9 BUN Cancelled 4 L Creatinine Cancelled 0.86 Est GFR ( Amer) Cancelled > 60 Est GFR (Non-Af Amer) Cancelled > 60 Glucose Cancelled 110 Calcium Cancelled 7.5 L Magnesium Cancelled 1.7 Total Bilirubin Cancelled 1.1 AST Cancelled 37 ALT Cancelled 24 Alkaline Phosphatase Cancelled 49 Total Protein Cancelled 5.4 L Albumin Cancelled 2.4 L Lipase 03/17/18 14:18 WBC RBC Hgb Hct MCV MCH MCHC RDW Plt Count Sodium Potassium Chloride Carbon Dioxide Anion Gap BUN Creatinine Est GFR ( Amer) Est GFR (Non-Af Amer) Glucose Calcium Magnesium Total Bilirubin AST ALT Alkaline Phosphatase Total Protein Albumin Lipase 147.1 Impressions: Abdomen/Pelvis CT 03/14/18 22:33 IMPRESSION: Diffuse pancreatic edema and surrounding inflammatory changes suggesting acute pancreatitis with probable pseudocyst in the region of the pancreatic head. Cystic pancreatic neoplasm is not excluded but thought less likely Areas of calcification in the distal aspect of the pancreatic tail and pancreatic head which may be within the ducts or represent chronic calcific pancreatitis Mild extrahepatic ductal dilatation and pneumobilia Abdomen MRI 03/15/18 00:00 IMPRESSION: No filling defects in the common bile or common hepatic duct worrisome for retained stones. Since 2016, patient has developed a 3.5 cm cystic structure uncinate process of the pancreas, either pancreatic cyst or pseudocyst Diffuse retroperitoneal interstitial tissue fluid from pancreatitis. Post cholecystectomy Chest X-Ray 03/17/18 14:32 IMPRESSION: Kandis lines at both lung bases, question mild fluid overload with interstitial edema Status: Imported from PACS Assessment & Plan - Diagnosis (1) Acute pancreatitis Qualifiers: Pancreatitis type: unspecified pancreatitis type Acute pancreatitis complication: unspecified Qualified Code(s): K85.90 - Acute pancreatitis without necrosis or infection, unspecified Is this a current diagnosis for this admission?: Yes Plan: Unchanged. Unable to advance diet to solid foods. Patient able to tolerate clear liquids however he experiences postprandial nausea and abdominal pain following solid foods. Likely secondary to acute on chronic pancreatitis. Initial lipase 338, improved today to 147. CT Abd suggestive of pancreatitis. MRCP completed, reveals 3.5cm cystic structure uncinate process of the pancreas -representing either a pancreatic cyst or pseudocyst. Diffuse retroperitoneal interstitial tissue fluid from pancreatitis. Results of MRCP discussed with skin diver, Dr. Andino, who states there are no further procedures indicated for this patient. Once patient can tolerate p.o. diet without postprandial N/V/abdominal pain, he may be discharged home with close follow-up. PRN tylenol and dilaudid for pain control (2) History of ETOH abuse Is this a current diagnosis for this admission?: Yes Plan: Patient has a history of chronic alcohol use, resulting in chronic pancreatitis. The patient's son reports that the patient only consumes 1 beer every other day. Unfortunately, blood alcohol level was not checked upon arrival to the ED. Patient does not appear to exhibit S/S alcohol withdrawal. LFTs are within normal limits. Discussed with son the importance of abstinence from EtOH in order to avoid acute flareup of pancreatitis. (3) Diabetes mellitus type 2 in nonobese Is this a current diagnosis for this admission?: Yes Plan: PMH of DM 2, currently diet controlled. (4) Hypokalemia Is this a current diagnosis for this admission?: Yes Plan: Likely due to inadequate intake of potassium while on clear liquid diet Replace with p.o. and IV KCl Daily BMP (5) Tobacco abuse Is this a current diagnosis for this admission?: Yes Plan: History of tobacco use, unclear how much patient smokes Consistently asking to go outside to smoke Nicotine patch offered - Time Time Spent with patient: 15-24 minutes Medications reviewed and adjusted accordingly: Yes Anticipated discharge: Home Within: within 48 hours - Inpatient Certification Based on my medical assessment, after consideration of the patient's comorbidities, presenting symptoms, or acuity I expect that the services needed warrant INPATIENT care.: Yes I certify that my determination is in accordance with my understanding of Medicare's requirements for reasonable and necessary INPATIENT services [42 CFR 412.3e].: Yes Medical Necessity: Risk of Complication if Not Cared For in Hospital - Plan Summary Plan Summary: Clear liquid diet. Nicotine patch. Monitor closely for abdominal pain, nausea , vomiting.
[2018-03-18] MEDS: HYDROMORPHONE HCL INJ/PF 2 MG/ML AMPULE IV PRN (02:31)
[2018-03-18] MEDS: NORMAL SALINE 1000 ML 1,000 ML IV PRN (05:40)
[2018-03-18] MEDS ORDERED: MORPHINE SULFATE 10 MG/ML INJ IV PRN (09:01)
[2018-03-18] MEDS ORDERED: NICOTINE 21 MG/24 HR PATCH.TD24 TD SCH (10:00)
[2018-03-18] MEDS: ENOXAPARIN SODIUM INJ 40 MG/0.4 ML DISP.SYRIN SUBCUT SCH (11:13)
[2018-03-18] MEDS: PANTOPRAZOLE SODIUM 40 MG VIAL IV SCH (11:13)
[2018-03-18] MEDS ORDERED: SIMETHICONE 80 MG TAB.CHEW PO ONE (11:15)
[2018-03-18] MEDS ORDERED: MAGNESIUM HYDROXIDE SUSP 30 ML UDCUP PO ONE (11:15)
[2018-03-18 11:20] LABS: ALANINE AMINOTRANSFERASE 26 U/L (21-72); ALBUMIN 2.4 g/dL (3.5-5.0); ALKALINE PHOSPHATASE 52 U/L (38-126); ANION GAP 10 (5-19); ASPARTATE AMINO TRANSFERASE 45 U/L (17-59); BILIRUBIN,DIRECT 0.4 mg/dL (0.0-0.4); BILIRUBIN,TOTAL 1.3 mg/dL (0.2-1.3); BLOOD UREA NITROGEN 4 mg/dL (7-20); CARBON DIOXIDE 21 mmol/L (22-30); CHLORIDE 115 mmol/L (98-107); GLUCOSE 123 mg/dL (75-110); POTASSIUM 3.8 mmol/L (3.6-5.0); SODIUM 145.5 mmol/L (137-145); TOTAL PROTEIN 5.5 g/dL (6.3-8.2)
[2018-03-18] MEDS: ACETAMINOPHEN 325 MG TABLET PO PRN ×2 (14:03→18:06)
[2018-03-18 17:56] VITALS: BP 100/68
== END 2018-03-18 18:11 | disposition home or self-care (01) | DRG 439 ==
LOC: ER 19:30 → EH 03-15 01:26 → 3N 03-15 03:12
PROVIDERS: ADMIT Internal Medicine; ATTEND Internal Medicine
DX: K85.20 Alcohol induced acute pancreatitis without necrosis or infection (principal); E46 Unspecified protein-calorie malnutrition; Z68.1 Body mass index [BMI] 19.9 or less, adult; K86.3 Pseudocyst of pancreas; K86.0 Alcohol-induced chronic pancreatitis; E11.9 Type 2 diabetes mellitus without complications; M19.90 Unspecified osteoarthritis, unspecified site; E87.6 Hypokalemia; Z90.49 Acquired absence of other specified parts of digestive tract; I25.10 Atherosclerotic heart disease of native coronary artery without angina pectoris; Z95.5 Presence of coronary angioplasty implant and graft; F03.90 Unspecified dementia, unspecified severity, without behavioral disturbance, psychotic disturbance, mood disturbance, and anxiety; F17.290 Nicotine dependence, other tobacco product, uncomplicated; R31.9 Hematuria, unspecified; F10.10 Alcohol abuse, uncomplicated; Z23 Encounter for immunization
CPT/HCPCS: 36415; 71045; 74177; 74181; 80053; 80307; 81001; 83615; 83690; 83735; 85025; 85027; 85610; 85730; 87040; 90686; 94640; 96361; 96365; 96375; 99285; J1170; J1650; J2060; J2405; J2543; J2550; J3010; J3480; J3490; J7030; J7620; S0164

== ENCOUNTER 2019-11-04 14:15 | Emergency (ER) | payer MEDICARE, MEDICAID ==
[2019-11-04] MEDS ORDERED: NORMAL SALINE 1000 ML 1,000 ML IV ONE (14:40)
[2019-11-04] MEDS ORDERED: ONDANSETRON HCL INJ/PF 4 MG/2 ML SDV IV ONE (14:40)
[2019-11-04] MEDS ORDERED: FENTANYL CITRATE INJ/PF 100 MCG/2 ML AMPUL IV ONE (14:57)
--- NOTE | 2019-11-04 14:57 | ER Document Report ---
ED General - General Chief Complaint: Vomiting Stated Complaint: VOMITING Time Seen by Provider: 11/04/19 14:39 Notes: 69-year-old male with a history of cholecystectomy here at [place] subsequent bile leak multiple episodes of pancreatitis since then presents with upper abdominal pain nausea vomiting p.o. intolerance for 3 days with weight loss and decreased functional activity. No fevers. No skin color change. Tree VS son interpretingpatient speaks only [place] and is hard of hearing. TRAVEL OUTSIDE OF THE [place] IN LAST 30 DAYS: No - Related Data Allergies/Adverse Reactions: promethazine [From Phenergan] Allergy (Severe, Verified 03/17/18 00:50) Home Medications: Diabetic oral meds Past Medical History - General Information source: Patient - Social History Smoking Status: Never Smoker Family History: Reviewed & Not Pertinent Patient has homicidal ideation: No - Past Medical History Cardiac Medical History: Denies: Hx Coronary Artery Disease, Hx Heart Attack, Hx Hypertension Pulmonary Medical History: Denies: Hx Asthma, Hx Bronchitis, Hx COPD, Hx Pneumonia Neurological Medical History: Denies: Hx Cerebrovascular Accident, Hx Seizures Endocrine Medical History: Reports: Hx Diabetes Mellitus Type 2 - Not on medications Renal/ Medical History: Denies: Hx Peritoneal Dialysis Musculoskeletal Medical History: Reports Hx Arthritis Psychiatric Medical History: Reports: Hx Dementia Past Surgical History: Reports: Hx Abdominal Surgery, Hx Cholecystectomy - With gallbladder fossa abscess complication following cholecystectomy, Hx Coronary Stent - Immunizations Hx Diphtheria, Pertussis, Tetanus Vaccination: No - UNSURE Review of Systems - Review of Systems Notes: REVIEW OF SYSTEMS GEN: Denies fever, chills, weight loss ENT: Denies sore throat, nasal discharge, ear pain EYES: Denies blurry vision, eye pain, discharge CV: Denies chest pain, palpitations, edema RESP: Denies cough, shortness of breath, wheezing GI: HPI MSK: Denies joint pain/swelling, edema, SKIN: Denies rash, skin lesions LYMPH: Denies swollen glands/lymph nodes NEURO: Denies headache, focal weakness or numbness, dizziness PSYCH: Denies depression, suicidal or homicidal ideation PHYSICAL EXAMINATION General: Thin frail chronically ill Head: Atraumatic, normocephalic ENT: Mouth normal, oropharynx moist, no exudates or tonsillar enlargement Eyes: Conjunctiva normal, pupils equal, lids normal Neck: No JVD, supple, no guarding CVS: Normal rate, regular rhythm, no murmurs Resp: No resp distress, equal and normal breath sounds bilaterally GI: Bowel tenderness/epigastric no rebound or guarding Ext: No deformities, no edema, normal range of motion in upper and lower ext Back: No CVA or midline TTP Skin: No rash, warm Lymphatic: No lymphadeopathy noted Neuro: Awake, alert. Face symmetric. GCS 15. Physical Exam - Vital signs Vitals: Temp 98.0 F 11/04/19 14:15 Course - Re-evaluation Re-evalutation: 11/04/19 14:57 Recurrent amount of pain obstruction versus pancreatitis We will check labs hydrate give pain meds and reassess 11/04/19 18:41 Patient's labs are essentially normal without evidence of acute pancreatitis or bili obstruction CT shows a slightly enlarged pancreatic pseudocyst in the head of the pancreas with new mild dilatation of the pancreatic ductconfirm with radiology. On reassessment however the patient feels much better is able to tolerate p.o. He will obviously need to be seen by GI, but I do not think he has acute pancreatitis from obstruction this is probably a subacute process given his last CT was 2 to 3 months ago, and can be seen by GI as an outpatient. He does see Dr. Goldman. Given his clinical response I think it is safe to discharge him home with follow-up with GI. He has no evidence of cholangitis altered mental status jaundice or other acute emergency. I have discussed with the patient there likely diagnosis, aftercare plan, follow-up plans and my usual and customary return precautions. They verbalized understanding of this. - Vital Signs Vital signs: Temp Pulse Resp BP Pulse Ox 98.9 F 100 19 125/87 H 99 11/04/19 14:37 11/04/19 14:37 11/04/19 14:37 11/04/19 14:37 11/04/19 14:37 - Laboratory Result Diagrams: 11/04/19 13:50 11/04/19 13:50 Laboratory results interpreted by me: 11/04/19 13:50 BUN 33 H Glucose 184 H Total Bilirubin 1.5 H Total Protein 9.3 H Discharge - Discharge Clinical Impression: Nausea & vomiting Qualifiers: Vomiting type: unspecified Vomiting Intractability: unspecified Qualified Code(s): R11.2 - Nausea with vomiting, unspecified Condition: Good Disposition: HOME, SELF-CARE Instructions: Vomiting ([facility]) Additional Instructions: As we discussed your CAT scan did show a new finding of a slightly enlarged cyst on your pancreas plus some possible clogging of the pancreas duct. This is something that needs to be investigated within the next 5 days by your GI doctor, Dr. Goldman. Please call his office tomorrow and get seen within the end of this week. Return to ER if any worse in any way Prescriptions: Ondansetron [Zofran Odt 4 mg Tablet] 1 - 2 tab PO Q4H PRN #15 tab.rapdis PRN Reason: For Nausea/Vomiting Referrals: LORRAINE ADAIR PA [Primary Care Provider] - Follow up as needed RITCHIE GOLDMAN MD [ACTIVE STAFF] - Follow up in 3-5 days
[2019-11-04 16:09] LABS: ABSOLUTE LYMPHOCYTES (AUTO) 1.4 10^3/uL (0.5-4.7); ABSOLUTE MONOCYTES (AUTO) 0.5 10^3/uL (0.1-1.4); BASOPHILS % (AUTO) 0.4 % (0-2); EOSINOPHILS % (AUTO) 0.6 % (0-6); HEMATOCRIT 43.6 % (37.9-51.0); HEMOGLOBIN 14.8 g/dL (13.5-17.0); LYMPHOCYTES % (AUTO) 20.6 % (13-45); MEAN CORPUSCULAR HEMOGLOBIN 30.9 pg (27.0-33.4); MEAN CORPUSCULAR VOLUME 91 fl (80-97); MONOCYTES % (AUTO) 7.7 % (3-13); PLATELET COUNT 164 10^3/uL (150-450); RED BLOOD COUNT 4.78 10^6/uL (4.35-5.55); RED CELL DISTRIBUTION WIDTH 13.5 % (11.5-14.0); SEGMENTED NEUTROPHILS % (AUTO) 70.7 % (42-78); TOTAL CELLS COUNTED % (AUTO) 100 %
[2019-11-04 17:07] LABS: ALBUMIN 4.9 g/dL (3.5-5.0); ALKALINE PHOSPHATASE 98 U/L (38-126); ANION GAP 13 (5-19); ASPARTATE AMINO TRANSFERASE 35 U/L (17-59); BILIRUBIN,DIRECT 0.2 mg/dL (0.0-0.4); BILIRUBIN,TOTAL 1.5 mg/dL (0.2-1.3); BLOOD UREA NITROGEN 33 mg/dL (7-20); CALCIUM 9.7 mg/dL (8.4-10.2); CARBON DIOXIDE 26 mmol/L (22-30); CHLORIDE 99 mmol/L (98-107); GLUCOSE 184 mg/dL (75-110); POTASSIUM 4.5 mmol/L (3.6-5.0); TOTAL PROTEIN 9.3 g/dL (6.3-8.2)
--- NOTE | 2019-11-04 17:45 | RADIOLOGY REPORT (SQ) ---
EXAM DESCRIPTION: CT ABD/PELVIS WITH IV ONLY IMAGES COMPLETED DATE/TIME: 11/04/2019 5:27 pm REASON FOR STUDY: r/o SBO, pancreatitis COMPARISON: 12/31/2015 TECHNIQUE: CT scan of the abdomen and pelvis performed using helical scanning technique with dynamic intravenous contrast injection. No oral contrast. Images reviewed with lung, soft tissue, and bone windows. Reconstructed coronal and sagittal MPR images reviewed. Delayed images for evaluation of the urinary system also acquired. All images stored on PACS. All CT scanners at this facility use dose modulation, iterative reconstruction, and/or weight based d osing when appropriate to reduce radiation dose to as low as reasonably achievable (ALARA). [facility]: Dose Right [facility]: CareDose [facility]: Dose Right [facility]: Teradose 4D [facility]: Asuragen CONTRAST TYPE AND DOSE: 51 cc Omnipaque 350- low osmolar. RENAL FUNCTION: BUN 33 creatinine 1 RADIATION DOSE: CT Rad equipment meets quality standard of care and radiation dose reduction techniq ues were employed. CTDIvol: NaN mGy. DLP: 0 mGy-cm.. LIMITATIONS: Patient changed position for the delayed images. FINDINGS: LOWER CHEST: No significant findings. No nodules or infiltrates. LIVER: Large amount biliary air. SPLEEN: Normal size. No focal lesions. PANCREAS: The pancreatic duct measures 6.9 mm in the midline. Cannot exclude a 10 mm low-density mas s in the pancreas on image 22. This is immediately adjacent to the dilated duct. GALLBLADDER: Surgically absent. ADRENAL GLANDS: No significant masses or asymmetry. RIGHT KIDNEY AND URETER: No solid masses. No significant calcifications. No hydronephrosis or hyd roureter. LEFT KIDNEY AND URETER: No solid masses. No significant calcifications. No hydronephrosis or hydr oureter. AORTA AND VESSELS: No aneurysm. No dissection. Renal arteries, SMA, celiac without stenosis. RETROPERITONEUM: No retroperitoneal adenopathy, hemorrhage or masses. BOWEL AND PERITONEAL CAVITY: There is considerable air in the bowel but no really distended loops of bowel are present. APPENDIX: Not identified. PELVIS: No mass. No free fluid. Normal bladder. ABDOMINAL WALL: No masses. No hernias. BONES: Multilevel compression changes in the spine. These do not appear to be acute. OTHER: No other significant finding. IMPRESSION: 1. There is dilated pancreatic duct with about a 10 mm low-density lesion in the head o f the pancreas just to the right of the midline. 2. There is large amount biliary air likely from prior sphincterotomy. 3. There is a fair amount of air in the bowel but no distended bowel loops are seen. 4. Multiple compression changes in the spine do not appear particularly acute. TECHNICAL DOCUMENTATION: JOB ID: [id number] Quality ID # [id number]: Final reports with documentation of one or more dose reduction techniques (e.g., Au tomated exposure control, adjustment of the mA and/or kV according to patient size, use of iterative reconstruction technique) 2010 [employer]- All Rights Reserved Reading location - IP/workstation name: [email or web address]
[2019-11-04 18:54] VITALS: BP 110/79
== END 2019-11-04 18:54 | disposition home or self-care (01) ==
LOC: ER 14:15
DX: R11.2 Nausea with vomiting, unspecified (principal); K86.3 Pseudocyst of pancreas; R10.10 Upper abdominal pain, unspecified; R10.816 Epigastric abdominal tenderness; R63.4 Abnormal weight loss; E11.9 Type 2 diabetes mellitus without complications; Z79.84 Long term (current) use of oral hypoglycemic drugs; Z90.49 Acquired absence of other specified parts of digestive tract; Z87.19 Personal history of other diseases of the digestive system; Z88.8 Allergy status to other drugs, medicaments and biological substances
CPT/HCPCS: 99284; 96372; 96361; 96374; 36415; 83690; 85025; 80076; 80048; 74177; J3010; J2405; J7030

== ENCOUNTER → 2020-01-07 | Outpatient (CLI) | payer MEDICARE, MEDICAID ==
[2020-01-07 11:19] LABS: HEMATOCRIT 36.6 % (37.9-51.0); HEMOGLOBIN 12.2 g/dL (13.5-17.0); MEAN CORPUSCULAR HEMOGLOBIN 30.9 pg (27.0-33.4); MEAN CORPUSCULAR HGB CONC 33.4 g/dL (32.0-36.0); MEAN CORPUSCULAR VOLUME 93 fl (80-97); PLATELET COUNT 346 10^3/uL (150-450); RED BLOOD COUNT 3.95 10^6/uL (4.35-5.55); RED CELL DISTRIBUTION WIDTH 14.5 % (11.5-14.0); WHITE BLOOD COUNT 8.5 10^3/uL (4.0-10.5)
[2020-01-07 11:43] LABS: ALBUMIN 3.7 g/dL (3.5-5.0); ALKALINE PHOSPHATASE 243 U/L (38-126); ANION GAP 14 (5-19); ASPARTATE AMINO TRANSFERASE 144 U/L (17-59); BILIRUBIN,DIRECT 0.8 mg/dL (0.0-0.4); BILIRUBIN,TOTAL 2.2 mg/dL (0.2-1.3); BLOOD UREA NITROGEN 20 mg/dL (7-20); CARBON DIOXIDE 23 mmol/L (22-30); CHLORIDE 103 mmol/L (98-107); GLUCOSE 176 mg/dL (75-110); POTASSIUM 4.6 mmol/L (3.6-5.0)
== END ==
LOC: OD 10:03
PROVIDERS: ATTEND Internal Medicine Gastroenterology
DX: R93.2 Abnormal findings on diagnostic imaging of liver and biliary tract (principal); R63.0 Anorexia
CPT/HCPCS: 36415; 80053; 85027

== ENCOUNTER 2020-01-17 11:35 | Day surgery (SDC) | payer MEDICARE, MEDICAID ==
[~2020-01-17 11:35] MED LIST: ONDANSETRON HCL INJ/PF 4 MG/2 ML SDV ONE; PHENYLEPHRINE HCL INJ/PF 10 MG/1 ML SDV ONE; SUCCINYLCHOLINE CHLORIDE INJ 200 MG/10 ML VIAL ONE
[2020-01-17] MEDS ORDERED: LACTATED RINGERS 1000 ML IV PRN (13:43)
[2020-01-17] MEDS ORDERED: LIDOCAINE 0.5% INJ-PF (5 MG/ML) 50 ML SDV SUBCUT PRN (13:43)
[2020-01-17] MEDS ORDERED: EPINEPHRINE INJ 1 MG/10 ML DISP.SYRIN ONE (14:18)
[2020-01-17] MEDS ORDERED: FENTANYL CITRATE INJ/PF 100 MCG/2 ML AMPUL ONE (14:23)
[2020-01-17] MEDS ORDERED: PROPOFOL INJ 200 MG/20 ML VIAL IV ONE (14:24)
--- NOTE | 2020-01-17 16:31 | Operative Report ---
Operative Report DATE OF SURGERY: 01/17/20 Operative Report: Pre-op diagnosis: Abnormal liver function tests with history of recurrent choledocholithiasis Post-op diagnosis: 1. Duodenal bulb stricture 2. Bile duct not cannulated Surgery: Esophagogastroduodenoscopy with balloon dilation. Attempted ERCP Medications: As per anesthesia Tissue removed: None Procedure: After informed consent obtained from patient son, he was placed under general anesthesia. An initial attempt was made to pass the ERCP endoscope into the duodenum. There was an apparent stricture in the first part of duodenum and I was not able to get the endoscope through. This was then removed and replaced with an EGD scope which confirmed the stricture in the duodenal bulb. I was able to pass the 10 mm endoscope with minimal difficulty. This area was then dilated using a 13 to 15mm balloon dilator. Further multiple attempts were then made to pass the ERCP endoscope into the second part of the duodenum unsuccessfully. Patient tolerated procedure well. Findings Esophagus: Normal Antrum: Normal Body: Normal Fundus: Normal Duodenum first part: Stricture identified. The duodenum was dilated with the balloon Duodenum second part: Normal using the EGD endoscope Plan: Repeat LFTs today and schedule MRCP for next week. If MRCP is abnormal he will need to be referred to a tertiary center for repeat ERCP. Plan was explained to the patient son. OPERATION: .
[2020-01-17 17:41] LABS: ALBUMIN 2.8 g/dL (3.5-5.0); ALKALINE PHOSPHATASE 164 U/L (38-126); ASPARTATE AMINO TRANSFERASE 50 U/L (17-59); BILIRUBIN,DIRECT 0.3 mg/dL (0.0-0.4); BILIRUBIN,TOTAL 1.1 mg/dL (0.2-1.3); TOTAL PROTEIN 8.8 g/dL (6.3-8.2)
[2020-01-17 18:13] VITALS: BP 116/78
[2020-01-18] MEDS ORDERED: LACTATED RINGERS 1000 ML IV PRN (05:00)
[2020-01-18] MEDS ORDERED: LIDOCAINE 0.5% INJ-PF (5 MG/ML) 50 ML SDV SUBCUT PRN (05:00)
== END 2020-01-17 18:05 | disposition home or self-care (01) ==
LOC: OROUT 11:35
PROVIDERS: ATTEND Internal Medicine Gastroenterology
DX: K31.5 Obstruction of duodenum (principal); K80.50 Calculus of bile duct without cholangitis or cholecystitis without obstruction; R93.3 Abnormal findings on diagnostic imaging of other parts of digestive tract; K86.0 Alcohol-induced chronic pancreatitis; R63.0 Anorexia; Z87.891 Personal history of nicotine dependence; Z79.84 Long term (current) use of oral hypoglycemic drugs; E11.9 Type 2 diabetes mellitus without complications; Z86.010 Personal history of colon polyps
CPT/HCPCS: 43245; 36415; 82962; 80076; 00731; C1726; Q9967; U0003; J3010; J2370; J0330; J2405; J2704; C9803; 43249; 731; 87635; J0171

== ENCOUNTER → 2020-01-23 | Outpatient (CLI) | payer MEDICARE, MEDICAID ==
[~2020-01-23] MED LIST changes: +DIAZEPAM 5 MG TABLET ONE; -ONDANSETRON HCL INJ/PF 4 MG/2 ML SDV ONE; -PHENYLEPHRINE HCL INJ/PF 10 MG/1 ML SDV ONE; -SUCCINYLCHOLINE CHLORIDE INJ 200 MG/10 ML VIAL ONE
--- NOTE | 2020-01-23 12:13 | RADIOLOGY REPORT (SQ) ---
EXAM DESCRIPTION: MRI ABDOMEN WITHOUT IMAGES COMPLETED DATE/TIME: 01/23/2020 9:29 am REASON FOR STUDY: MRCP DISORDERS OF GALLBLADDER (K87) K87 DISORD OF GB, BILIARY TRAC AND PANCRE IN DIS CLASSD EL COMPARISON: 03/15/2018 TECHNIQUE: Noncontrast MRCP. Source and MIP images reviewed. LIMITATIONS: Excessive motion. FINDINGS: Study is limited by motion. There is a large solid mass subdiaphragmatic liver measuring about 6.3 by 7.4 cm. Prior cholecystectomy. No evidence of common bile duct stone. There is limite d evaluation of the pancreas to the amount of motion. No other significant finding. IMPRESSION: Limitations due to motion. Large solitary liver mass. Follow-up [address] of the live r and pancreas is recommended. COMMENT: Mass should be amenable to CT-guided biopsy. TECHNICAL DOCUMENTATION: JOB ID: [id number] 2010 [employer]- All Rights Reserved Reading location - IP/workstation name: [email or web address]
== END ==
LOC: RAD 01-21 13:41
PROVIDERS: ATTEND Internal Medicine Gastroenterology
DX: K82.8 Other specified diseases of gallbladder (principal)
CPT/HCPCS: 74181; A9270